=== PATIENT | male | born 1965 | race Caucasian/White ===

== ENCOUNTER 2019-05-18 17:45 | Emergency (ER) | payer OTHER ==
[~2019-05-18] VITALS: Ht 167.6 cm; Wt 59.1 kg
[2019-05-18] MEDS ORDERED: ALBUTEROL SULFATE 5 MG/ML 20 ML NEB SOLN [BULK] NEB ONE (18:15)
[2019-05-18] MEDS ORDERED: IPRATROPIUM BROMIDE 0.5 MG/2.5 ML NEB SOLUTION NEB ONE (18:15)
[2019-05-18] MEDS ORDERED: PredniSONE 20 MG TABLET PO ONE (18:15)
[2019-05-18] MEDS ORDERED: 0.9% SODIUM CHLORIDE 5 ML NEB SOLUTION NEB ONE (18:24)
[2019-05-18] MEDS ORDERED: ALBU8HFA IH (19:50)
[2019-05-18] MEDS ORDERED: IPRA4AER IH (19:50)
[2019-05-18] MEDS ORDERED: ALBUTEROL SULFATE HFA 90 MCG/PUFF 8 GM INHALER IH ONE (20:00)
[2019-05-18 20:41] VITALS: BP 144/84
== END 2019-05-18 21:14 | disposition home or self-care (01) ==
LOC: EMS 17:47
DX: J45.901 Unspecified asthma with (acute) exacerbation (principal); L02.415 Cutaneous abscess of right lower limb; F19.10 Other psychoactive substance abuse, uncomplicated; F17.210 Nicotine dependence, cigarettes, uncomplicated; F12.90 Cannabis use, unspecified, uncomplicated; F19.90 Other psychoactive substance use, unspecified, uncomplicated
CPT/HCPCS: 94640; 94644; 99285; 99406; J7512; J3535